=== PATIENT | female | born 1960 ===

== ENCOUNTER 2016-07-14 11:31 | Inpatient (IN) | payer MEDICAID, OTHER ==
[2016-07-14] MEDS ORDERED: Sodium Chloride 0.9% 1,000 ML IV ONE (12:30)
--- NOTE | 2016-07-14 13:01 | C.PDOC ---
History Of Present Illness A 56 y/o female presents to the ER c/o abdominal pain that radiates to the back for 3 hours. Pain worse with movement. (+) N/v non bilious non bloody (+) decrease appetite. Pt notes that she experienced the same symptoms 2 years ago and used Omeprazole, which resolved the issue. Pt notes nausea but denies fever , chest pain, SOB, diarrhea, or any other complaints. Time Seen by Provider: 07/14/16 12:07 Chief Complaint (Nursing): Abdominal Pain History Per: Patient, Manager [employer] History/Exam Limitations: language barrier Onset/Duration Of Symptoms: Hrs Current Symptoms Are (Timing): Still Present Severity: Mild Location Of Pain/Discomfort: Diffuse Associated Symptoms: Nausea Recent travel outside of the [place]: No Additional History Per: Patient Abnormal Vaginal Bleeding: No Past Medical History Reviewed: Historical Data, Nursing Documentation, Vital Signs Vital Signs: Last Vital Signs Temp 98.2 F 07/14/16 17:38 Pulse 60 07/14/16 17:38 Resp 18 07/14/16 17:38 BP 126/69 07/14/16 17:38 Pulse Ox 100 07/14/16 17:38 - Medical History PMH: HTN Family History: States: Unknown Family Hx - Social History Hx Alcohol Use: No Hx Substance Use: No - Immunization History Hx Tetanus Toxoid Vaccination: No Hx Influenza Vaccination: No Review Of Systems Except As Marked, All Systems Reviewed And Found Negative. Constitutional: Negative for: Fever, Chills Cardiovascular: Negative for: Chest Pain Respiratory: Negative for: Shortness of Breath Gastrointestinal: Positive for: Nausea, Abdominal Pain. Negative for: Vomiting , Diarrhea Physical Exam - Physical Exam Appears: Non-toxic, In Acute Distress (Painful distress) Skin: Normal Color, Warm, Dry Head: Atraumatic, Normacephalic Eye(s): bilateral: Normal Inspection, EOMI Nose: Normal Oral Mucosa: Moist Neck: Normal ROM, Supple Chest: Symmetrical Cardiovascular: Rhythm Regular, No Murmur Respiratory: Normal Breath Sounds, No Accessory Muscle Use, Other (Speaking ini full sentences) Gastrointestinal/Abdominal: Soft, Tenderness (RUQ tenderness), No Rebound Neurological/Psych: Oriented x3, Normal Speech, Other (No focal deficit) ED Course And Treatment - Laboratory Results Result Diagrams: 07/14/16 13:08 07/14/16 13:08 ECG: Interpreted By Me, Viewed By Me ECG Rhythm: Sinus Bradycardia ECG Interpretation: Normal Rate From EC O2 Sat by Pulse Oximetry: 100 (RA) Pulse Ox Interpretation: Normal - CT Scan/US US abdomen Other Rad Studies (CT/US): Interpreted By Me, Read By Radiologist CT/US Interpretation: HISTORY: abd pain. COMPARISON: None. TECHNIQUE: Sonographic evaluation of the abdomen. FINDINGS: LIVER: Measures 15.6 cm. Smooth contour and normal al echogenicity of the liver parenchyma. No mass. No intrahepatic bile duct dilatation. GALLBLADDER: The gallbladder is distended and contains sludge balls and on intraluminal calculi. Positive sonographic Medrano sign. No pericholecystic fluid collection. COMMON BILE DUCT: Measures 5.4 mm. No stones. No dilatation. PANCREAS: Visualized portions the pancreas appear grossly unremarkable. Note that the pancreatic tail is poorly visualized due to body habitus and bowel gas. No mass. No ductal dilatation. . RIGHT KIDNEY: Measures 9.7 x 4.5 x 5.3cm. Normal echogenicity. No calculus, mass, or hydronephrosis. LEFT KIDNEY: Measures 9.9 x 4.7 x 5.0cm. Normal echogenicity. No calculus, mass, or hydronephrosis. SPLEEN: Normal in size measuring approximately 9.3 cm. No mass collection or calcification. Note that. AORTA: No aneurysmal dilatation. IVC: Unremarkable. OTHER FINDINGS: None. IMPRESSION: Cholelithiasis with sludge balls and positive sonographic Medrano sign. Findings could represent early acute cholecystitis. . Progress Note: Impression: 56 y/o c/o abdominal pain that radiates to the back for 3 hours. Plans: EKG, blood labs, Morphine, Zofran, Protonix, IV fluids, US Abd,. On re-evaluation, pain improved minimally. Abdomen persists to be tender. Case discussed with dental resident who evaluated pt at bedside and discsused case with DR Carmona, surgeon personal caregiver and agreed upon admission. Disposition - Disposition Disposition: HOSPITALIZED Disposition Time: 17:00 Condition: STABLE - Clinical Impression Clinical Impression: Cholecystitis, Abdominal pain - Scribe Statement The provider has reviewed the documentation as recorded by the Scribe Irene hawkins All medical record entries made by the Guillermoibe were at my direction and personally dictated by me. I have reviewed the chart and agree that the record accurately reflects my personal performance of the history, physical exam, medical decision making, and the department course for this patient. I have also personally directed, reviewed, and agree with the discharge instructions and disposition.
[2016-07-14] MEDS ORDERED: Morphine 4 MG/ML VIAL ONE (13:09)
[2016-07-14] MEDS ORDERED: Sodium Chloride 0.9% 1,000 ML ONE ×2 (13:10→17:50)
[2016-07-14 13:12] LABS: BASO % 0.4 % (0.0-2.0); EOS # 0.1 K/uL (0.0-0.7); EOS % 0.6 % (0.0-4.0); HEMATOCRIT 41.2 % (34.0-47.0); LYMPH # 2.1 K/uL (1.0-4.3); MEAN CELL VOLUME 91.2 fL (81.0-99.0); MEAN CORPUSCULAR HEMOGLOBIN 31.1 pg (27.0-31.0); MEAN CORPUSCULAR HGB CONC 34.1 g/dL (33.0-37.0); MEAN PLATELET VOLUME 7.7 fL (7.2-11.7); MONO # 0.5 K/uL (0.0-0.8); MONO % 4.3 % (0.0-10.0); RED CELL DISTRIBUTION WIDTH 12.5 % (11.5-14.5); WHITE BLOOD COUNT 11.5 K/uL (4.8-10.8)
[2016-07-14 13:22] LABS: CHLORIDE 96 mmol/L (98-107)
[2016-07-14 13:23] LABS: POTASSIUM 3.6 mmol/L (3.6-5.2); SODIUM 133 mmol/L (132-148)
[2016-07-14 13:25] LABS: ALB/GLOB RATIO 1.5 (1.0-2.1); ALKALINE PHOSPHATASE 94 U/L (38-126); AST/SGOT 26 U/L (14-36); BILIRUBIN,TOTAL 0.6 mg/dL (0.2-1.3); CARBON DIOXIDE 23 mmol/L (22-30); GFR AFRICAN-AMERICAN > 60; TOTAL PROTEIN 7.8 g/dL (6.3-8.3)
[2016-07-14 13:26] LABS: ALT/SGPT 25 U/L (9-52); BLOOD UREA NITROGEN 13 mg/dL (7-17); CALCIUM 9.6 mg/dl (8.6-10.4); GLUCOSE,RANDOM 133 mg/dL (65-105)
--- NOTE | 2016-07-14 16:18 | US ---
HISTORY: abd pain COMPARISON: None. TECHNIQUE: Sonographic evaluation of the abdomen. FINDINGS: LIVER: Measures 15.6 cm. Smooth contour and normal al echogenicity of the liver parenchyma. No mass. No intrahepatic bile duct dilatation. GALLBLADDER: The gallbladder is distended and contains sludge balls and on intraluminal calculi. Positive sonographic Medrano sign. No pericholecystic fluid collection. COMMON BILE DUCT: Measures 5.4 mm. No stones. No dilatation. PANCREAS: Visualized portions the pancreas appear grossly unremarkable. Note that the pancreatic tail is poorly visualized due to body habitus and bowel gas. No mass. No ductal dilatation. . RIGHT KIDNEY: Measures 9.7 x 4.5 x 5.3cm. Normal echogenicity. No calculus, mass, or hydronephrosis. LEFT KIDNEY: Measures 9.9 x 4.7 x 5.0cm. Normal echogenicity. No calculus, mass, or hydronephrosis. SPLEEN: Normal in size measuring approximately 9.3 cm. No mass collection or calcification. Note that AORTA: No aneurysmal dilatation. IVC: Unremarkable. OTHER FINDINGS: None. IMPRESSION: Cholelithiasis with sludge balls and positive sonographic Medrano sign. Findings could represent early acute cholecystitis. .
[2016-07-14] MEDS ORDERED: Piperacillin/Tazobact 3.375 gm 100 ML IV STA (17:30)
[2016-07-14] MEDS ORDERED: Morphine 4 MG/ML VIAL IVP PRN (17:31)
[2016-07-14] MEDS ORDERED: Piperacillin/Tazobact 3.375 gm 100 ML IVPB ONE (17:40)
--- NOTE | 2016-07-14 17:40 | CP.PCM.HP ---
<Lalo Kerr - Last Filed: 07/14/16 17:26> History of Present Illness - History of Present Illness History of Present Illness: Surgery: Dr. Miller CC: Abd pain HPI: 56F w. pmh of HTN and OA, presents to ED w. acute onset abd pain 8:00AM this morning. Pain is epigastric and RUQ. Pain is cosntant. Aggravated by movement. No alleviating factors. Pt has decreased appetite, + N/V x 2 NBNB, denies diarrhea. Has sweats and chills. No KRAUSE/blurred vision, no CP/ palpitations, no SOB/cough, no hematuria/dysuria. Pt had similar pain 2 yrs ago but it was less severe and resolved on its own. PMH: HTN, OA PSH: Meds: MAR reviewed NKDA Social hx: No ETOH/tobacco/drugs Fhx: non-contributory Present on Admission - Present on Admission Any Indicators Present on Admission: No Review of Systems - Review of Systems All systems: reviewed and no additional remarkable complaints except (HPI) Past Patient History - Past Social History Smoking Status: Never Smoked - CARDIAC Hx Hypertension: Yes - PSYCHIATRIC Hx Substance Use: No - SURGICAL HISTORY Hx Surgeries: Yes Hx Section: Yes Meds Allergies/Adverse Reactions: Allergies Allergy/AdvReac Type Severity Reaction Status Date / Time No Known Allergies Allergy Verified 07/14/16 11:48 Physical Exam - Constitutional Appears: Non-toxic, No Acute Distress - Head Exam Head Exam: ATRAUMATIC, NORMOCEPHALIC - Eye Exam Eye Exam: EOMI. absent: Scleral icterus - ENT Exam ENT Exam: Mucous Membranes Moist, Normal External Ear Exam - Neck Exam Neck exam: Positive for: Full Rom - Respiratory Exam Respiratory Exam: NORMAL BREATHING PATTERN. absent: Accessory Muscle Use, Respiratory Distress - GI/Abdominal Exam GI & Abdominal Exam: Rebound, Soft, Tenderness (RUQ, +Medrano). absent: Distended, Firm, Guarding, Rigid - Extremities Exam Extremities exam: Negative for: calf tenderness, pedal edema - Neurological Exam Neurological exam: Alert, Oriented x3 Results - Vital Signs Recent Vital Signs: Last Vital Signs Temp 97.7 F 07/14/16 11:54 Pulse 52 L 07/14/16 15:30 Resp 16 07/14/16 15:30 BP 121/52 L 07/14/16 15:30 Pulse Ox 100 07/14/16 17:05 - Labs Result Diagrams: 07/14/16 13:08 07/14/16 13:08 Labs: Laboratory Results - last 24 hr 07/14/16 07/14/16 13:08 13:08 WBC 11.5 H RBC 4.51 Hgb 14.1 Hct 41.2 MCV 91.2 MCH 31.1 H MCHC 34.1 RDW 12.5 Plt Count 303 MPV 7.7 Neut % (Auto) 76.7 H Lymph % (Auto) 18.0 L [place] % (Auto) 4.3 Eos % (Auto) 0.6 Baso % (Auto) 0.4 Neut # 8.8 H Lymph # 2.1 [place] # 0.5 Eos # 0.1 Baso # 0.0 Sodium 133 Potassium 3.6 Chloride 96 L Carbon Dioxide 23 Anion Gap 18 BUN 13 Creatinine 0.6 L Est GFR ( Amer) > 60 Est GFR (Non-Af Amer) > 60 Random Glucose 133 H Calcium 9.6 Total Bilirubin 0.6 AST 26 ALT 25 Alkaline Phosphatase 94 Total Creatine Kinase 68 CK-MB (Mass) 1.06 Troponin I < 0.0120 Total Protein 7.8 Albumin 4.7 Globulin 3.1 Albumin/Globulin Ratio 1.5 Lipase 128 - Imaging and Cardiology US - abdomen Status: Image reviewed by me, Report reviewed by me Assessment & Plan - Assessment and Plan (Free Text) Assessment: 56F w. cholecystitis -will plan for OR on thursday -CLD -IVF -zosyn -morphine -zofran -AM labs -SCDs -d/w attending Zemaitis PGY2 Decision To Admit - Pt Status Changed To: Hospital Disposition Of: Inpatient - Admit Certification Admit to Inpatient:: After my assessment, the patient will require hospitalization for at least two midnights. This is because of the severity of symptoms shown, intensity of services needed, and/or the medical risk in this patient being treated as an outpatient. - InPatient: Physician Admission Certification:: Acute cholecystitis - . Bed Request Type: Regular Admitting Physician: Christian Miller <Christian Miller - Last Filed: 07/20/16 22:22> Results - Vital Signs Recent Vital Signs: Last Vital Signs Temp 98.7 F 07/18/16 16:00 Pulse 60 07/18/16 16:00 Resp 20 07/18/16 16:00 BP 111/70 07/18/16 16:00 Pulse Ox 96 07/18/16 16:00 - Labs Result Diagrams: 07/18/16 09:01 07/18/16 09:01 Attending/Attestation - Attestation I have personally seen and examined this patient.: Yes I have fully participated in the care of the patient.: Yes I have reviewed all pertinent clinical information: Yes Notes (Text): 07/20/16 22:21 Pt was seen and examined at bedside on 07/15/16 Agree with above note and assessment Pt with Acute Cholecystitis with Cholelithiasis MRCP C/w current mx Plan d.w pt in detail Risk and benefit explained in detail.
[2016-07-14] MEDS: Sodium Chloride 0.9% 1,000 ML IV SCH (17:53)
--- NOTE | 2016-07-14 18:29 | RAD ---
HISTORY: pre-op COMPARISON: No prior. FINDINGS: LUNGS: No active pulmonary disease. PLEURA: No significant pleural effusion identified, no pneumothorax apparent. CARDIOVASCULAR: Normal. OSSEOUS STRUCTURES: Minor degenerative changes both acromioclavicular joints. VISUALIZED UPPER ABDOMEN: Normal. OTHER FINDINGS: None. IMPRESSION: No active disease.
[2016-07-15] MEDS: Piperacillin/Tazobact 3.375 GM in Sodium Chloride 100 ML IVPB SCH ×3 (01:21→17:32)
[2016-07-15] MEDS: Sodium Chloride 0.9% 1,000 ML IV SCH ×3 (03:45→23:50)
[2016-07-15 08:41] LABS: HEMATOCRIT 40.6 % (34.0-47.0); MEAN CORPUSCULAR HEMOGLOBIN 31.3 pg (27.0-31.0); MEAN CORPUSCULAR HGB CONC 33.5 g/dL (33.0-37.0); MEAN PLATELET VOLUME 8.1 fL (7.2-11.7); RED CELL DISTRIBUTION WIDTH 12.9 % (11.5-14.5); WHITE BLOOD COUNT 10.2 K/uL (4.8-10.8)
[2016-07-15 08:53] LABS: MEAN CELL VOLUME 93.4 fL (81.0-99.0)
[2016-07-15 09:02] LABS: CHLORIDE 103 mmol/L (98-107); POTASSIUM 3.9 mmol/L (3.6-5.2); SODIUM 137 mmol/L (132-148)
[2016-07-15 09:04] LABS: ALB/GLOB RATIO 1.3 (1.0-2.1); AST/SGOT 410 U/L (14-36); BILIRUBIN,TOTAL 1.6 mg/dL (0.2-1.3); CARBON DIOXIDE 24 mmol/L (22-30); GFR AFRICAN-AMERICAN > 60; TOTAL PROTEIN 6.7 g/dL (6.3-8.3)
[2016-07-15 09:05] LABS: ALKALINE PHOSPHATASE 136 U/L (38-126); ALT/SGPT 418 U/L (9-52); BLOOD UREA NITROGEN 8 mg/dL (7-17); CALCIUM 8.8 mg/dl (8.6-10.4); GLUCOSE,RANDOM 111 mg/dL (65-105)
--- NOTE | 2016-07-15 09:40 | CP.PCM.PN ---
<NadeemDeaNileBryce - Last Filed: 07/15/16 09:36> Subjective - Date & Time of Evaluation Date of Evaluation: 07/15/16 Time of Evaluation: 09:36 - Subjective Subjective: Surgery: Dr. Miller Patient states she feels better. Reports that she would like to try conservative treatment for gallbladder and does not want surgery at this time. She is tolerating CLD w/o n/v. Objective - Vital Signs/Intake and Output Vital Signs (last 24 hours): Temp Pulse Resp BP Pulse Ox 98.5 F 63 20 107/68 97 07/15/16 07:06 07/15/16 07:06 07/15/16 07:06 07/15/16 07:06 07/15/16 07:06 Intake and Output: 07/15/16 07/15/16 06:59 18:59 Intake Total 1620 Balance 1620 - Medications Medications: Current Medications Acetaminophen (Tylenol 325mg Tab) 650 mg PO Q6 PRN PRN Reason: Fever >100.4 F Docusate Sodium (Colace) 100 mg PO BID [facility] Last Admin: 07/14/16 19:51 Dose: 100 mg Piperacillin Sod/Tazobactam (Sod 3.375 gm/ Sodium Chloride) 100 mls @ 200 mls/ hr IVPB Q8H [facility] Last Admin: 07/15/16 01:21 Dose: 200 mls/hr Sodium Chloride (Sodium Chloride 0.9%) 1,000 mls @ 100 mls/hr IV .Q10H [facility] Last Admin: 07/15/16 03:45 Dose: 100 mls/hr Morphine Sulfate (Morphine) 4 mg IVP Q4 PRN PRN Reason: Pain, moderate (4-7) Ondansetron HCl (Zofran Inj) 4 mg IVP Q4 PRN PRN Reason: Nausea/Vomiting - Labs Labs: 07/15/16 08:32 07/15/16 08:32 PT 11.2 SECONDS (9.7-12.2) 07/14/16 17:56 INR 1.0 07/14/16 17:56 APTT 26 SECONDS (21-34) 07/14/16 17:56 - Constitutional Appears: Non-toxic, No Acute Distress - Head Exam Head Exam: ATRAUMATIC, NORMOCEPHALIC - Eye Exam Eye Exam: EOMI, Normal appearance - ENT Exam ENT Exam: Mucous Membranes Moist - Respiratory Exam Respiratory Exam: NORMAL BREATHING PATTERN. absent: Respiratory Distress - Cardiovascular Exam Cardiovascular Exam: REGULAR RHYTHM. absent: Tachycardia - GI/Abdominal Exam GI & Abdominal Exam: Guarding, Soft. absent: Distended, Tenderness, Rebound - Neurological Exam Neurological Exam: Alert, Awake, Oriented x3 - Psychiatric Exam Psychiatric exam: Normal Affect, Normal Mood - Skin Skin Exam: Normal Color, Warm Assessment and Plan - Assessment and Plan (Free Text) Assessment: 56 y/o F w/ cholecystitis, r/o choledocholithiasis Plan: -GI evaluation for transaminitis -MRCP to r/o choledocholithiasis -tentatively for OR tomorrow if patient agrees -will discuss her options further regarding surgery at this time is our recommended option for care -cont. CLD for now -NPO past MN -d/w Dr. Miller AKWhite PGY1 <Christian Miller B - Last Filed: 07/20/16 22:24> Objective - Vital Signs/Intake and Output Vital Signs (last 24 hours): Temp Pulse Resp BP Pulse Ox 98.7 F 60 20 111/70 96 07/18/16 16:00 07/18/16 16:00 07/18/16 16:00 07/18/16 16:00 07/18/16 16:00 - Labs Labs: 07/18/16 09:01 07/18/16 09:01 PT 11.2 SECONDS (9.7-12.2) 07/14/16 17:56 INR 1.0 07/14/16 17:56 APTT 26 SECONDS (21-34) 07/14/16 17:56 Attending/Attestation - Attestation I have personally seen and examined this patient.: Yes I have fully participated in the care of the patient.: Yes I have reviewed all pertinent clinical information, including history, physical exam and plan: Yes Notes (Text): 07/20/16 22:24 Pt was seen and examined at bedside on 07/15/16 Agree with above note and assessment Pt with Acute Cholecystitis OR for Lap Cholecystectomy if MRCP is negative C/w current mx Consent Plan d.w pt in detail Risk and benefit explained in detail.
--- NOTE | 2016-07-15 18:27 | CARD ---
APPROVED REPORT EKG Measurement Heart [id number] CO [id number] [id number] <Conclusion> Sinus bradycardia Otherwise normal ECG
--- NOTE | 2016-07-15 18:31 | MRI ---
MRCP Indication: Acute hyperbilirubinemia, gallstones and Technique: Multiplanar, multisequence MR images of the abdomen were obtained, including heavily T2 weighted MRCP images of the biliary system. Rotating maximum intensity projection images of the biliary system were generated. A total of 510 images were submitted for review. Comparison: Abdominal ultrasound performed 07/14/16 Findings: Cholelithiasis. Mild pericholecystic fluid/ gallbladder-wall thickening. The gallbladder appears distended. There is no intrahepatic biliary ductal dilatation. The common bile duct appears within normal limits in caliber and tapers distally. The pancreatic duct does not appear dilated. No filling defects identified in the common bile duct or pancreatic duct. The included portions of the noncontrast liver, adrenal glands, kidneys, spleen, and pancreas appear unremarkable. No bulky abdominal lymphadenopathy is seen. No ascites. No acute osseous abnormality is detected. Impression: No filling defects seen within the common bile duct which appears within normal limits of caliber. Cholelithiasis. Mild pericholecystic fluid/ gallbladder-wall thickening. The gallbladder appears distended. Correlate clinically for acute cholecystitis.
[2016-07-16] MEDS: Piperacillin/Tazobact 3.375 GM in Sodium Chloride 100 ML IVPB SCH ×3 (00:59→18:52)
[2016-07-16] MEDS: Sodium Chloride 0.9% 1,000 ML IV SCH ×3 (03:57→18:52)
[2016-07-16 07:59] LABS: RBC URINE 3 /hpf (0-3); URINE BILIRUBIN NEGATIVE (NEGATIVE); URINE BLOOD 1+ (NEGATIVE); URINE COLOR Yellow (YELLOW); URINE GLUCOSE (UA) NORMAL (Normal); URINE KETONE NEGATIVE (NEGATIVE); URINE LEUKOCYTE ESTERASE NEG Leu/uL (Negative); URINE PROTEIN NEGATIVE (NEGATIVE); URINE UROBILINOGEN NORMAL mg/dL (0.2-1.0); WBC URINE 1 /hpf (0-5)
--- NOTE | 2016-07-16 08:00 | CP.PCM.CON ---
History of Present Illness - History of Present Illness History of Present Illness: Asked for a GI consultation on this patient CC: abdominal pain HPI: This is a 56 year old female with h/o HTN, arthritis who presents to hospital with 1-2 day complaint of right sided/epigastric abdominal pain. The patient states that the pain was localized but radiated to back, associated with nausea and 2 episodes of emesis. States that is was stabbing/constant. No fever, but chills. No change in bowel habits. No diarrhea/constipation/rectal bleeding/ melena. She reports having similar bout of abdominal pain 2 years ago that was self limited and she did not seek medical attention for. She has never had prior endoscopic evaluation. She denies any history of liver disease. PMHx/PSHx: as above Medications: enalapril Allergies: NKDA ROS: as per HPI otherwise negative in detail FH: no history of GI malignancy, +DM/HTN SH: denies tobacco, ETOH or illicit drug use Review of Systems - Constitutional Constitutional: Chills. absent: Fever - Cardiovascular Cardiovascular: absent: Chest Pain - Respiratory Respiratory: absent: Cough, Dyspnea - Gastrointestinal Gastrointestinal: As Per HPI - Genitourinary Genitourinary: absent: Difficulty Urinating, Dysuria - Musculoskeletal Musculoskeletal: absent: Back Pain - Integumentary Integumentary: absent: Pruritus, Rash - Neurological Neurological: absent: Tremor, Weakness - Psychiatric Psychiatric: absent: Anxiety, Depression - Endocrine Endocrine: absent: Fatigue Past Patient History - Past Medical History & Family History Past Medical History?: Yes - Past Social History Smoking Status: Never Smoked - CARDIAC Hx Hypertension: Yes - MUSCULOSKELETAL/RHEUMATOLOGICAL Hx Musculoskeletal Disorders: Yes Hx Arthritis: Yes Hx Falls: No - PSYCHIATRIC Hx Substance Use: No - SURGICAL HISTORY Hx Surgeries: Yes Hx Section: Yes - ANESTHESIA Hx Anesthesia: Yes Hx Anesthesia Reactions: No Meds Allergies/Adverse Reactions: Allergies Allergy/AdvReac Type Severity Reaction Status Date / Time No Known Allergies Allergy Verified 07/14/16 11:48 - Medications Medications: Current Medications Acetaminophen (Tylenol 325mg Tab) 650 mg PO Q6 PRN PRN Reason: Fever >100.4 F Docusate Sodium (Colace) 100 mg PO BID [facility] Last Admin: 07/15/16 17:45 Dose: 100 mg Piperacillin Sod/Tazobactam (Sod 3.375 gm/ Sodium Chloride) 100 mls @ 200 mls/ hr IVPB Q8H [facility] Last Admin: 07/16/16 00:59 Dose: 200 mls/hr Sodium Chloride (Sodium Chloride 0.9%) 1,000 mls @ 100 mls/hr IV .Q10H [facility] Last Admin: 07/16/16 03:57 Dose: 100 mls/hr Morphine Sulfate (Morphine) 4 mg IVP Q4 PRN PRN Reason: Pain, moderate (4-7) Ondansetron HCl (Zofran Inj) 4 mg IVP Q4 PRN PRN Reason: Nausea/Vomiting Pneumococcal Polyvalent Vaccine (Pneumovax 23 Vaccine) 0.5 ml IM .ONCE ONE Stop: 07/17/16 10:01 Physical Exam - Constitutional Appears: No Acute Distress - Eye Exam Eye Exam: absent: Scleral icterus - ENT Exam ENT Exam: Mucous Membranes Moist - Respiratory Exam Respiratory Exam: Clear to Auscultation Bilateral - Cardiovascular Exam Cardiovascular Exam: +S1, +S2 - GI/Abdominal Exam Additional comments: abdomen soft, mild TTP in RUQ without rebound/guarding, bowel sounds present, no palpable mass - Extremities Exam Extremities exam: Negative for: pedal edema - Back Exam Back exam: absent: CVA tenderness (L), CVA tenderness (R) - Neurological Exam Neurological exam: Alert, Oriented x3 - Skin Skin Exam: Dry Results - Vital Signs Recent Vital Signs: Last Vital Signs Temp 97.8 F 07/15/16 23:34 Pulse 59 L 07/15/16 23:34 Resp 20 07/15/16 23:34 BP 112/65 07/15/16 23:34 Pulse Ox 96 07/15/16 23:34 - Labs Result Diagrams: 07/15/16 08:32 07/15/16 08:32 Labs: Laboratory Results - last 24 hr 07/15/16 07/15/16 08:32 08:32 WBC 10.2 RBC 4.35 Hgb 13.6 Hct 40.6 MCV 93.4 D MCH 31.3 H MCHC 33.5 RDW 12.9 Plt Count 254 MPV 8.1 Sodium 137 Potassium 3.9 Chloride 103 Carbon Dioxide 24 Anion Gap 13 BUN 8 Creatinine 0.6 L Est GFR ( Amer) > 60 Est GFR (Non-Af Amer) > 60 Random Glucose 111 H Calcium 8.8 Total Bilirubin 1.6 H AST 410 H D ALT 418 H D Alkaline Phosphatase 136 H D Total Protein 6.7 Albumin 3.8 Globulin 3.0 Albumin/Globulin Ratio 1.3 Assessment & Plan - Assessment and Plan (Free Text) Assessment: This is a 56 year old female with h/o HTN, arthritis who is admitted with abdominal pain. She is found to have gallstones with associated cholecystitis. She has elevated LFTs. Her MRCP is negative for choledocholithiasis. Plan: Monitor LFTs MRCP negative for choledocholithiasis Check hepatitis panel Pain control, antiemetic therapy as needed Continue antibiotics Plan for possible OR today Continue further management as per surgical team
[2016-07-16 08:07] LABS: HEMATOCRIT 35.7 % (34.0-47.0); MEAN CORPUSCULAR HEMOGLOBIN 31.3 pg (27.0-31.0); MEAN CORPUSCULAR HGB CONC 33.3 g/dL (33.0-37.0); MEAN PLATELET VOLUME 8.1 fL (7.2-11.7); WHITE BLOOD COUNT 4.3 K/uL (4.8-10.8)
[2016-07-16 08:35] LABS: CHLORIDE 105 mmol/L (98-107)
[2016-07-16 08:36] LABS: POTASSIUM 3.6 mmol/L (3.6-5.2); SODIUM 138 mmol/L (132-148)
[2016-07-16 08:38] LABS: CARBON DIOXIDE 25 mmol/L (22-30); GFR AFRICAN-AMERICAN > 60
[2016-07-16 08:39] LABS: ALB/GLOB RATIO 1.2 (1.0-2.1); ALKALINE PHOSPHATASE 141 U/L (38-126); ALT/SGPT 251 U/L (9-52); AST/SGOT 129 U/L (14-36); BILIRUBIN,TOTAL 1.1 mg/dL (0.2-1.3); BLOOD UREA NITROGEN 4 mg/dL (7-17); CALCIUM 8.1 mg/dl (8.6-10.4); GLUCOSE,RANDOM 101 mg/dL (65-105); TOTAL PROTEIN 6.1 g/dL (6.3-8.3)
[2016-07-16 11:40] LABS: BASO % 0.5 % (0.0-2.0); EOS # 0.2 K/uL (0.0-0.7); EOS % 4.9 % (0.0-4.0); HEMATOCRIT 36.7 % (34.0-47.0); LYMPH # 1.1 K/uL (1.0-4.3); LYMPH % 25.3 % (20.0-40.0); MEAN CELL VOLUME 93.5 fL (81.0-99.0); MEAN CORPUSCULAR HEMOGLOBIN 31.1 pg (27.0-31.0); MEAN CORPUSCULAR HGB CONC 33.2 g/dL (33.0-37.0); MEAN PLATELET VOLUME 8.1 fL (7.2-11.7); MONO # 0.3 K/uL (0.0-0.8); MONO % 7.3 % (0.0-10.0); NRBC % 0.1 % (0.0-2.0); RED CELL DISTRIBUTION WIDTH 12.7 % (11.5-14.5); WHITE BLOOD COUNT 4.2 K/uL (4.8-10.8)
[2016-07-16 11:54] LABS: CHLORIDE 103 mmol/L (98-107)
[2016-07-16 11:55] LABS: POTASSIUM 3.4 mmol/L (3.6-5.2); SODIUM 137 mmol/L (132-148)
[2016-07-16 11:57] LABS: GFR AFRICAN-AMERICAN > 60
[2016-07-16 11:58] LABS: ALB/GLOB RATIO 1.1 (1.0-2.1); ALKALINE PHOSPHATASE 154 U/L (38-126); ALT/SGPT 240 U/L (9-52); AST/SGOT 111 U/L (14-36); BILIRUBIN,TOTAL 0.9 mg/dL (0.2-1.3); BLOOD UREA NITROGEN 4 mg/dL (7-17); CALCIUM 8.6 mg/dl (8.6-10.4); CARBON DIOXIDE 26 mmol/L (22-30); GLUCOSE,RANDOM 92 mg/dL (65-105); TOTAL PROTEIN 6.3 g/dL (6.3-8.3)
[2016-07-16] MEDS ORDERED: Lactated Ringer's 1,000 ML IV ONE ×4 (13:27→17:09)
[2016-07-16] MEDS ORDERED: Propofol 10 mg/ml Inj (20 ML) ONE (14:35)
[2016-07-16] MEDS ORDERED: Midazolam 2 MG/2 ML VIAL ONE (14:37)
[2016-07-16] MEDS ORDERED: Rocuronium 10 mg/ml (10 ml) ONE (14:40)
[2016-07-16] MEDS: Bupivacaine/Epi 0.25%-1:200,000 10 ml PF inj IJ ONE ×2 (14:51→15:37)
[2016-07-16] MEDS: Lidocaine 1% Inj (20ml) ONE ×2 (14:52→15:37)
[2016-07-16] MEDS ORDERED: ceFAZolin IV 1 gm in Dextrose 2 GM/100 ML BAG IVPB ONE (15:13)
[2016-07-16] MEDS ORDERED: HYDROmorphone 0.5 mg/0.5 ml ISec IVP PRN ×2 (15:34→15:41)
[2016-07-16] MEDS ORDERED: Neostigmine Methylsulfate 3mg/3ml Syringe IV ONE (16:39)
--- NOTE | 2016-07-16 17:22 | PCM.SURG1 ---
Surgeon's Initial Post Op Note - Surgeon's Notes Surgeon: Dr. Miller Metallography Teacher: Dr. Dalton PGY-2 Type of Anesthesia: General Endo, Local Pre-Operative Diagnosis: Acute cholecystitis Operative Findings: cholelithiasis Post-Operative Diagnosis: Acute cholecystitis Operation Performed: Laparoscopic cholecystectomy, lysis of adhesions Specimen/Specimens Removed: gallbladder Estimated Blood Loss: EBL {In ML}: 15 Blood Products Given: N/A Drains Used: No Drains Post-Op Condition: Fair Date of Surgery/Procedure: 07/16/16 Time of Surgery/Procedure: 17:20
--- NOTE | 2016-07-16 20:47 | OP ---
PROCEDURE DATE: 07/16/2016 PREOPERATIVE DIAGNOSIS: Acute cholecystitis and cholelithiasis. POSTOPERATIVE DIAGNOSES: 1. Acute cholecystitis and cholelithiasis. 2. Extensive post infectious adhesion. PROCEDURES: 1. Laparoscopic cholecystectomy. 2. Laparoscopic lysis of adhesion, extensive. SURGEON: Christian Miller MD. STOP ATTACHER: Dot Dalton, PGY-2 resident. ANESTHESIA: General endotracheal tube. ESTIMATED BLOOD LOSS: Around 50 mL. DRAINS: None. PATHOLOGY: Gallbladder with gallstone sent for pathology. COMPLICATIONS: None. INTRAOPERATIVE FINDINGS: The patient had changes of acute on chronic cholecystitis with extensive post infectious adhesion. INTRAOPERATIVE STEPS: This is a 56-year-old female who was diagnosed with acute cholecystitis and cholelithiasis and the patient was consented for the laparoscopic cholecystectomy, possible open. She was brought to the OR, placed supine on the operating table. After induction of the anesthesia, abdomen was prepped and draped in the usual sterile fashion. The supraumbilical transverse 1.5 cm incision was made. After incising skin and subcutaneous tissue and fascia, Kenneth port was placed, pneumo was created. The 12 mm port was placed in the midline just below the xiphisternum and two 5 mm ports were placed in midclavicular and anterior axillary line. After the grasper and dissector was introduced and gallbladder appeared to be buried under the omentum and other adhesions and the soft lysis of adhesion was done and gallbladder was retracted cranially, the infundibulum was also attached to the colon and the duodenum and with the blunt and sharp dissection, a infundibulum was identified and it was retracted laterally. Calot's triangle dissection was done. Cystic duct and cystic artery were identified and the critical view of the safety was done. After that, the cystic duct was clipped at 3 places and cut in between 2 clips near the gallbladder and the cystic artery was also clipped at 3 places and cut in between 2 clips nearby gallbladder and gallbladder was dissected free from the gallbladder fossa, taken in EndoCatch bag, taken out through the umbilical port site and sent to the table for the pathology. After proper hemostasis, the gallbladder was taken in EndoCatch bag and taken out through the umbilical port site and sent to the table for the pathology. After taking all the ports out, the umbilical port site was closed in 2 layers, the fascia with 0 Vicryl interrupted suture, skin with a 4-0 Monocryl and dry sterile dressing was applied. The patient tolerated the procedure well. Count of instrument was correct. There were no apparent complications. The patient was extubated in the OR, sent to the postanesthesia care in stable condition. Christian Miller MD cc: [id number] TT: 07/16/2016 20:46:00 jn MTDD
[2016-07-17] MEDS ORDERED: Pneumococcal 23-Valent Vaccine IM ONE (10:00)
[2016-07-17] MEDS ORDERED: Oxycodone/Acetaminophen 5/325 mg Tab PO PRN ×2 (19:50→19:52)
[2016-07-17] MEDS ORDERED: Morphine 4 MG/ML VIAL IVP PRN (19:56)
[2016-07-17] MEDS: Sodium Chloride 0.9% 1,000 ML IV SCH (20:38)
[2016-07-17 21:23] LABS: ALB/GLOB RATIO 1.3 (1.0-2.1); ALKALINE PHOSPHATASE 126 U/L (38-126); ALT/SGPT 188 U/L (9-52); AST/SGOT 98 U/L (14-36); BILIRUBIN,TOTAL 0.8 mg/dL (0.2-1.3); BLOOD UREA NITROGEN 5 mg/dL (7-17); CARBON DIOXIDE 26 mmol/L (22-30); CHLORIDE 101 mmol/L (98-107); GFR AFRICAN-AMERICAN > 60; GLUCOSE,RANDOM 145 mg/dL (65-105); POTASSIUM 3.5 mmol/L (3.6-5.2); SODIUM 139 mmol/L (132-148); TOTAL PROTEIN 6.1 g/dL (6.3-8.3)
[2016-07-17 22:20] LABS: WHITE BLOOD COUNT 7.6 K/uL (4.8-10.8)
[2016-07-17 22:21] LABS: HEMATOCRIT 35.5 % (34.0-47.0); MEAN CELL VOLUME 92.5 fL (81.0-99.0); MEAN CORPUSCULAR HEMOGLOBIN 31.2 pg (27.0-31.0); MEAN CORPUSCULAR HGB CONC 33.8 g/dL (33.0-37.0); MEAN PLATELET VOLUME 7.6 fL (7.2-11.7); RED CELL DISTRIBUTION WIDTH 12.7 % (11.5-14.5)
[2016-07-18 00:51] VITALS: RESP 20
[2016-07-18] MEDS: Piperacillin/Tazobact 3.375 GM in Sodium Chloride 100 ML IVPB SCH ×2 (02:06→11:13)
[2016-07-18 08:18] VITALS: PULSE 60; O2SAT 96
[2016-07-18 09:14] LABS: BASO % 0.4 % (0.0-2.0); EOS # 0.2 K/uL (0.0-0.7); EOS % 2.5 % (0.0-4.0); HEMATOCRIT 35.9 % (34.0-47.0); LYMPH # 1.1 K/uL (1.0-4.3); LYMPH % 16.7 % (20.0-40.0); MEAN CELL VOLUME 93.1 fL (81.0-99.0); MEAN CORPUSCULAR HEMOGLOBIN 31.3 pg (27.0-31.0); MEAN CORPUSCULAR HGB CONC 33.6 g/dL (33.0-37.0); MEAN PLATELET VOLUME 8.1 fL (7.2-11.7); MONO # 0.3 K/uL (0.0-0.8); MONO % 4.9 % (0.0-10.0); RED CELL DISTRIBUTION WIDTH 12.5 % (11.5-14.5); WHITE BLOOD COUNT 6.3 K/uL (4.8-10.8)
[2016-07-18 09:15] LABS: BASO % 0.3 % (0.0-2.0); EOS # 0.1 K/uL (0.0-0.7); EOS % 2.1 % (0.0-4.0); HEMATOCRIT 35.6 % (34.0-47.0); LYMPH # 1.1 K/uL (1.0-4.3); LYMPH % 17.5 % (20.0-40.0); MEAN CELL VOLUME 92.6 fL (81.0-99.0); MEAN CORPUSCULAR HEMOGLOBIN 31.4 pg (27.0-31.0); MEAN CORPUSCULAR HGB CONC 33.9 g/dL (33.0-37.0); MONO # 0.3 K/uL (0.0-0.8); MONO % 4.5 % (0.0-10.0); RED CELL DISTRIBUTION WIDTH 12.6 % (11.5-14.5); WHITE BLOOD COUNT 6.4 K/uL (4.8-10.8)
[2016-07-18 10:07] LABS: CHLORIDE 102 mmol/L (98-107)
[2016-07-18 10:08] LABS: POTASSIUM 3.3 mmol/L (3.6-5.2); SODIUM 138 mmol/L (132-148)
[2016-07-18 10:10] LABS: GFR AFRICAN-AMERICAN > 60
[2016-07-18 10:11] LABS: ALB/GLOB RATIO 1.2 (1.0-2.1); ALKALINE PHOSPHATASE 130 U/L (38-126); ALT/SGPT 156 U/L (9-52); AST/SGOT 80 U/L (14-36); BILIRUBIN,TOTAL 0.8 mg/dL (0.2-1.3); BLOOD UREA NITROGEN 4 mg/dL (7-17); CALCIUM 8.7 mg/dl (8.6-10.4); CARBON DIOXIDE 25 mmol/L (22-30); GLUCOSE,RANDOM 175 mg/dL (65-105); TOTAL PROTEIN 6.6 g/dL (6.3-8.3)
[2016-07-18 10:12] LABS: CHLORIDE 102 mmol/L (98-107); POTASSIUM 3.3 mmol/L (3.6-5.2); SODIUM 138 mmol/L (132-148)
[2016-07-18 10:14] LABS: BILIRUBIN,TOTAL 0.7 mg/dL (0.2-1.3); GFR AFRICAN-AMERICAN > 60
[2016-07-18 10:15] LABS: ALB/GLOB RATIO 1.2 (1.0-2.1); ALKALINE PHOSPHATASE 128 U/L (38-126); ALT/SGPT 152 U/L (9-52); AST/SGOT 73 U/L (14-36); BLOOD UREA NITROGEN 4 mg/dL (7-17); CARBON DIOXIDE 25 mmol/L (22-30); GLUCOSE,RANDOM 171 mg/dL (65-105); TOTAL PROTEIN 6.7 g/dL (6.3-8.3)
[2016-07-18 10:16] LABS: CALCIUM 8.7 mg/dl (8.6-10.4)
[2016-07-18] MEDS ORDERED: Potassium Chloride 20 mEq ER Tab PO ONE (10:44)
--- NOTE | 2016-07-18 11:35 | CP.PCM.DIS ---
Provider - Provider Date of Admission: 07/14/16 17:30 Attending physician: Christian Miller MD Consults: Dr. Ng (GI) Time Spent in preparation of Discharge (in minutes): 30 Diagnosis - Discharge Diagnosis (1) Cholecystitis Status: Resolved Hospital Course - Lab Results Lab Results: Micro Results 07/14/16 18:00 Blood-Venous Blood Culture - Preliminary NO GROWTH AFTER 3 DAYS Most Recent Lab Values WBC 6.4 K/uL (4.8-10.8) 07/18/16 09:01 RBC 3.84 Mil/uL (3.80-5.20) 07/18/16 09:01 Hgb 12.1 g/dL (11.0-16.0) 07/18/16 09:01 Hct 35.6 % (34.0-47.0) 07/18/16 09:01 MCV 92.6 fL (81.0-99.0) 07/18/16 09:01 MCH 31.4 pg (27.0-31.0) H 07/18/16 09:01 MCHC 33.9 g/dL (33.0-37.0) 07/18/16 09:01 RDW 12.6 % (11.5-14.5) 07/18/16 09:01 Plt Count 245 K/uL (130-400) 07/18/16 09:01 MPV 8.0 fL (7.2-11.7) 07/18/16 09:01 Neut % (Auto) 75.6 % (50.0-75.0) H 07/18/16 09:01 Lymph % (Auto) 17.5 % (20.0-40.0) L 07/18/16 09:01 [place] % (Auto) 4.5 % (0.0-10.0) 07/18/16 09:01 Eos % (Auto) 2.1 % (0.0-4.0) 07/18/16 09:01 Baso % (Auto) 0.3 % (0.0-2.0) 07/18/16 09:01 Neut # 4.8 K/uL (1.8-7.0) 07/18/16 09:01 Lymph # 1.1 K/uL (1.0-4.3) 07/18/16 09:01 [place] # 0.3 K/uL (0.0-0.8) 07/18/16 09:01 Eos # 0.1 K/uL (0.0-0.7) 07/18/16 09:01 Baso # 0.0 K/uL (0.0-0.2) 07/18/16 09:01 PT 11.2 SECONDS (9.7-12.2) 07/14/16 17:56 INR 1.0 07/14/16 17:56 APTT 26 SECONDS (21-34) 07/14/16 17:56 Sodium 138 mmol/L (132-148) 07/18/16 09:01 Potassium 3.3 mmol/L (3.6-5.2) L 07/18/16 09:01 Chloride 102 mmol/L (98-107) 07/18/16 09:01 Carbon Dioxide 25 mmol/L (22-30) 07/18/16 09:01 Anion Gap 14 (10-20) 07/18/16 09:01 BUN 4 mg/dL (7-17) L 07/18/16 09:01 Creatinine 0.6 MG/DL (0.7-1.2) L 07/18/16 09:01 Est GFR ( Amer) > 60 07/18/16 09:01 Est GFR (Non-Af Amer) > 60 07/18/16 09:01 Random Glucose 171 mg/dL (65-105) H 07/18/16 09:01 Calcium 8.7 mg/dl (8.6-10.4) 07/18/16 09:01 Total Bilirubin 0.7 mg/dL (0.2-1.3) 07/18/16 09:01 AST 73 U/L (14-36) H D 07/18/16 09:01 ALT 152 U/L (9-52) H 07/18/16 09:01 Alkaline Phosphatase 128 U/L (38-126) H 07/18/16 09:01 Total Creatine Kinase 68 U/L (30-135) 07/14/16 13:08 CK-MB (Mass) 1.06 ng/mL (0.0-3.38) 07/14/16 13:08 Troponin I < 0.0120 ng/mL (0.00-0.120) 07/14/16 13:08 Total Protein 6.7 g/dL (6.3-8.3) 07/18/16 09:01 Albumin 3.6 g/dL (3.5-5.0) 07/18/16 09:01 Globulin 3.1 gm/dL (2.2-3.9) 07/18/16 09:01 Albumin/Globulin Ratio 1.2 (1.0-2.1) 07/18/16 09:01 Lipase 128 U/L (23-300) 07/14/16 13:08 Urine Color Yellow (YELLOW) 07/16/16 07:42 Urine Clarity Clear (Clear) 07/16/16 07:42 Urine pH 6.0 (5.0-8.0) 07/16/16 07:42 Ur Specific [place] 1.010 (1.003-1.030) 07/16/16 07:42 Urine Protein Negative mg/dL (NEGATIVE) 07/16/16 07:42 Urine Glucose (UA) Normal mg/dL (Normal) 07/16/16 07:42 Urine Ketones Negative mg/dL (NEGATIVE) 07/16/16 07:42 Urine Blood 1+ (NEGATIVE) H 07/16/16 07:42 Urine Nitrate Negative (NEGATIVE) 07/16/16 07:42 Urine Bilirubin Negative (NEGATIVE) 07/16/16 07:42 Urine Urobilinogen Normal mg/dL (0.2-1.0) 07/16/16 07:42 Ur Leukocyte Esterase Neg [place]/uL (Negative) 07/16/16 07:42 Urine WBC (Auto) 1 /hpf (0-5) 07/16/16 07:42 Urine RBC (Auto) 3 /hpf (0-3) 07/16/16 07:42 Ur Squamous Epith Cells < 1 /hpf (0-5) 07/16/16 07:42 Hepatitis A IgM Ab Negative (NEGATIVE) 07/16/16 11:30 Hep Bs Antigen Negative (NEGATIVE) 07/16/16 11:30 Hep B Core IgM Ab Negative (NEGATIVE) 07/16/16 11:30 Hepatitis C Antibody Negative (NEGATIVE) 07/16/16 11:30 - Hospital Course Hospital Course: 56yo F with PMHx of HTN, OA presented to the ED on 07/14/16 with acute onset RUQ , epigastric abdominal pain. She had associated nausea and vomiting. She was given Zosyn, Morphine, Zofran, IV fluids. The next day, her bilirubin went up to 1.6 and her LFTs went to the 400s. GI was consulted. Hepatitis panel was negative. An MRCP was done which showed cholelithiasis, mild pericholecystic fluid, mild gallbladder wall thickening. Gallbladder distended. No filling defects were seen in the common bile duct. On 07/16/16, she was taken to the OR for laparoscopic cholecystectomy with lysis of adhesions. The hyperbilirubinemia resolved. Her LFTs remained elevated but trended down each day. On POD#2, she was tolerating low fat diet, ambulating, using her IS, having BMs and was cleared for discharge home. Discharge Exam - Head Exam Head Exam: ATRAUMATIC, NORMOCEPHALIC - Eye Exam Eye Exam: EOMI, Normal appearance - Respiratory Exam Respiratory Exam: NORMAL BREATHING PATTERN. absent: Respiratory Distress - Cardiovascular Exam Cardiovascular Exam: +S1, +S2 - GI/Abdominal Exam GI & Abdominal Exam: Soft, Tenderness (mild tenderness at incision sites). absent: Distended, Firm, Guarding, Rebound, Rigid Additional comments: Dressings dry and intact. Small amount of old dried blood on lateral incision band aid. - Neurological Exam Neurological exam: Alert, CN II-XII Intact, Oriented x3 - Psychiatric Exam Psychiatric exam: Normal Affect, Normal Mood - Skin Skin Exam: Dry, Normal Color, Warm Discharge Plan - Follow Up Plan Condition: STABLE Disposition: HOME/ ROUTINE Patient education suggested?: Yes Instructions: Cholecystitis (DC), Cholecystitis (GEN), Laparoscopic Cholecystectomy (DC) Additional Instructions: Keep dressings clean and dry for 3 more days. After 3 days, you may remove the top dressings and shower (but do not take a bath or swim). Leave steri strips in place, they will fall off on their own over time. Avoid heavy lifting for 4 weeks. Eat a low fat diet Follow up with Dr. Miller in his office in 1-2 weeks, call to make appointment. Take Percocet as needed for pain. Take Colace as needed for constipation. Referrals: Christian Miller MD [Staff Provider] - Clinical Quality Measures - Date & Time of Discharge Summary Date of Discharge Summary: 07/18/16 Time of Discharge Summary: 11:42
[2016-07-18 18:37] VITALS: BP 111/70; TEMP 98.7
--- NOTE | 2016-08-11 14:40 | CARD ---
APPROVED REPORT EKG Measurement Heart [id number] <Conclusion> Sinus bradycardia Otherwise normal ECG
== END 2016-07-18 18:15 | disposition home or self-care (01) | DRG 494 ==
LOC: C.ER 11:31 → C.9E 17:30 → C.3T 18:02
PROVIDERS: ADMIT Surgery Surgical Critical Care; ATTEND Surgery Surgical Critical Care
PROC: 0FT44ZZ Resection of Gallbladder, Percutaneous Endoscopic Approach (ICD-10-PCS; principal; 2016-07-14)
DX: K80.10 Calculus of gallbladder with chronic cholecystitis without obstruction (principal); I10 Essential (primary) hypertension; Z68.22 Body mass index [BMI] 22.0-22.9, adult